=== PATIENT | female | born 1995 | race Caucasian/White ===

== ENCOUNTER 2018-08-28 09:16 | Emergency (ER) | payer OTHER ==
--- NOTE | 2018-08-28 09:23 | EDPHY ---
H & P Time Seen by Provider: 08/28/18 09:22 HPI/ROS: CHIEF COMPLAINT: Black eye HISTORY OF PRESENT ILLNESS: Patient says she felt sick this last weekend with nausea vomiting all day on Thursday and then awakened on Thursday with her boyfriend telling her he noticed she had a black eye. He said there was a bunch of stuff knocked over in the bathroom and he wondered if she had fallen that night. She denies assault trauma or domestic violence or any known injury. Of note she also noted that she bit her tongue on the right side and had a small superficial laceration below the left eyebrow. She denies headache or dizziness or nausea now. REVIEW OF SYSTEMS: Eye: no change in vision, no double vision ENT: no sore throat Cardiac: no chest pain or syncope Pulmonary: no cough or SOB Abdomen: no vomiting, diarrhea, abdominal pain Musculoskeletal: no back pain or neck pain Skin: Bruising around the left eye Neuro: no headache Constitutional: no fever : no urinary symptoms A comprehensive 10 point review of systems is otherwise negative aside from elements mentioned in the history of present illness. PAST MEDICAL HISTORY: Asthma and tonsillectomy Family history: No history of premature sudden or cardiac dysrhythmia Social history: Only occasional alcohol General Appearance: Alert and conversant, cooperative. Eyes: No scleral icterus. Extraocular motion intact, no hyphema. ENT, Mouth: Normal mucous membranes. No hemotympanum and no facial bony tenderness or crepitus including around the left orbit. Healed right mid tongue laceration. Respiratory: Normal respiratory effort, breath sounds equal, lungs are clear to auscultation. Cardiovascular: Regular rate and rhythm. Gastrointestinal: Abdomen is soft and non tender. Neurological: Alert, face symmetric, normal motor and sensory in extremities. [id number] normal bilaterally, not ataxic, speech fluent. Skin: Warm and dry, no rashes. Musculoskeletal: No spinal tenderness. Psychiatric: Not agitated. Emergency Department course/MDM: Differential includes concussion but also seizures considered because of the tongue laceration. Emphasize the patient that a definitive reason for her black eye is not conclusively established in the emergency department. I think CT head is reasonable with her posttraumatic concussion as well as possible first-time seizure, discussed and consented. Because of the history of tongue abrasion or laceration, discussed with Clarisa from Neurology who agrees with workup in ED an outpatient referral. Patient warned mandatory follow-up, no driving until seen by Neurology in the office and approved. Smoking Status: Never smoked Constitutional: Initial Vital Signs Temperature (C) 36.5 C 08/28/18 09:17 Heart Rate 107 H 08/28/18 09:17 Respiratory Rate 16 08/28/18 09:17 Blood Pressure 119/73 08/28/18 09:17 O2 Sat (%) 97 08/28/18 09:17 O2 Delivery Mode Room Air Allergies/Adverse Reactions: Penicillins Allergy (Verified 08/28/18 09:22) Home Medications: Medication Instructions Recorded NK [No Known Home Meds] 08/28/18 Medical Decision Making - Diagnostics EKG Interpretation: 12-lead EKG interpreted by me; official reading is in computer system. My interpretation is sinus rhythm rate 64 with short p.r., but no delta wave. Imaging Results: Imaging Impressions Head CT 08/28/18 09:36 Impression: No acute intracranial findings. If seizures persist and clinical suspicion warrants, consider MRI. Findings discussed with PANTERA BOLAND 08/28/2018 at 10:13. Imaging: Discussed imaging studies w/ medical laboratory assistant Radiologist - Data Points Laboratory Results: Laboratory Results 08/28/18 09:42 08/28/18 09:42 08/28/18 08/28/18 08/28/18 09:42 09:42 09:42 WBC 8.45 10^3/uL 10^3/uL (3.80-9.50) RBC 4.94 10^6/uL 10^6/uL (4.18-5.33) Hgb 15.3 g/dL g/dL (12.6-16.3) Hct 44.9 % % (38.0-47.0) MCV 90.9 fL fL (81.5-99.8) MCH 31.0 pg pg (27.9-34.1) MCHC 34.1 g/dL g/dL (32.4-36.7) RDW 12.8 % % (11.5-15.2) Plt Count 195 10^3/uL 10^3/uL (150-400) MPV 11.8 fL H fL (8.7-11.7) Neut % (Auto) 56.8 % % (39.3-74.2) Lymph % (Auto) 32.3 % % (15.0-45.0) [place] % (Auto) 6.0 % % (4.5-13.0) Eos % (Auto) 3.8 % % (0.6-7.6) Baso % (Auto) 0.7 % % (0.3-1.7) Nucleat RBC Rel Count 0.0 % % (0.0-0.2) Absolute Neuts (auto) 4.80 10^3/uL 10^3/uL (1.70-6.50) Absolute Lymphs (auto) 2.73 10^3/uL 10^3/uL (1.00-3.00) Absolute Monos (auto) 0.51 10^3/uL 10^3/uL (0.30-0.80) Absolute Eos (auto) 0.32 10^3/uL 10^3/uL (0.03-0.40) Absolute Basos (auto) 0.06 10^3/uL 10^3/uL (0.02-0.10) Absolute Nucleated RBC 0.00 10^3/uL 10^3/uL (0-0.01) Immature Gran % 0.4 % % (0.0-1.1) Immature Gran # 0.03 10^3/uL 10^3/uL (0.00-0.10) Sodium 139 mEq/L mEq/L (135-145) Potassium 4.2 mEq/L mEq/L (3.5-5.2) Chloride 103 mEq/L mEq/L (97-110) Carbon Dioxide 26 mEq/l mEq/l (22-31) Anion Gap 10 mEq/L mEq/L (6-14) BUN 13 mg/dL mg/dL (7-23) Creatinine 0.7 mg/dL mg/dL (0.6-1.0) Estimated GFR > 60 Glucose 89 mg/dL mg/dL (70-100) Calcium 10.0 mg/dL mg/dL (8.5-10.4) Beta HCG, Qual NEGATIVE Departure - Departure Disposition: Home, Routine, Self-Care Clinical Impression: left facial contusion Condition: Good Instructions: Head Injury (ED) Additional Instructions: It is possible that you passed out from dehydration or another reason, and hit your head with a concussion. It is also possible that you had a seizure this week. Mandatory follow-up with referral physician neurologist Dr. Mckenna this coming week. Call office on Thursday. To be safe I would recommend no driving until approved by follow-up physician. Referrals: Javier Mckenna MD [Medical Doctor] - As per Instructions
--- NOTE | 2018-08-28 09:43 | CPEKG ---
Test Reason : OPEN Blood Pressure : / mmHG Vent. Rate : 064 BPM Atrial Rate : 063 BPM P-R Int : 086 ms QRS Dur : 093 ms QT Int : 430 ms P-R-T Axes : 071 084 069 degrees QTc Int : 444 ms Sinus rhythm Short HI interval Confirmed by Pantera Boland ([id number]) on 08/28/2018 9:42:56 AM Referred By: PANTERA BOLAND Confirmed By:Pantera Boland
[2018-08-28 09:51] LABS: PLATELET COUNT 195 10^3/uL (150-400)
[2018-08-28 10:47] VITALS: BP 122/68
== END 2018-08-28 10:47 | disposition home or self-care (01) ==
DX: S00.12XA Contusion of left eyelid and periocular area, initial encounter (principal); W19.XXXA Unspecified fall, initial encounter

== ENCOUNTER 2018-10-22 20:55 | Emergency (ER) | payer OTHER | END 2018-10-22 22:41 | disposition home or self-care (01) ==

== ENCOUNTER 2018-10-23 02:18 | Observation (INO) | payer OTHER | END 2018-10-23 13:46 | disposition home or self-care (01) | LOC: F2N 05:13 ==

== ENCOUNTER → 2018-11-05 | Outpatient (CLI) | payer OTHER | LOC: FCPNEURO 13:49 ==